=== PATIENT | female | born 1985 | race Caucasian/White ===

== ENCOUNTER → 2019-03-27 12:39 | Outpatient (CLI) | payer OTHER, SELFPAY ==
--- NOTE | 2019-03-27 | DI.MG.S_ITS ---
BILATERAL DIGITAL DIAGNOSTIC MAMMOGRAM 3D/2D: 03/27/2019 CLINICAL: Baseline exam. Left breast lump. No prior exams were available for comparison. The tissue of both breasts is predominantly fatty. No significant masses, calcifications, or other findings are seen in either breast. Specifically, no finding to correspond to the patient's palpable abnormality. IMPRESSION: INCOMPLETE: NEEDS ADDITIONAL IMAGING EVALUATION There is no abnormality seen in the left breast to correspond with the palpable abnormality at 1 o'clock, however, ultrasound is recommended. This was performed immediately following this exam. This exam was interpreted at Station ID: [id number]. NOTE: For mammograms, a report in lay terms will be sent to the patient. Approximately 15% of breast malignancies will not be visualized mammographically. In the management of a palpable breast mass, a negative mammogram must not discourage biopsy of a clinically suspicious lesion. Electronically Signed By: Rozina tinoco/:03/27/2019 13:46:10 ACR BI-RADS Category 0: Incomplete [id number]
--- NOTE | 2019-03-27 | DI.US.S_ITS ---
LIMITED ULTRASOUND OF LEFT BREAST: 03/27/2019 CLINICAL: Palpable left breast lump by physician. Comparison is made to exam dated: 03/27/2019 [facility]. Color flow and real-time ultrasound of the left breast were performed. Son scale images of the real-time examination were reviewed. No significant abnormalities were seen sonographically in the left breast. Specifically, no finding to correspond to the patient's palpable abnormality. Incidental note made of benign appearing lymph node at the 1:30 position corresponding to an intramammary lymph node also seen on mammogram. This does not correlate to palpable abnormality site. IMPRESSION: NEGATIVE There is no sonographic evidence of malignancy. There is no abnormality seen in the left breast to correspond with the palpable abnormality at 1 o'clock. Beginning annual screening mammogram at age 40 is recommended. Findings and recommendations were conveyed to the patient at time of exam. This exam was interpreted at Station ID: [id number]. Electronically Signed By: Rozina tinoco/:03/27/2019 14:07:35 letter sent: Normal Exam Ultrasound BI-RADS: 1 Negative
== END ==
PROVIDERS: PCP Nurse Practitioner Acute Care; Visit Provider Nurse Practitioner Acute Care
DX: R92.8 Other abnormal and inconclusive findings on diagnostic imaging of breast (principal); N63.21 Unspecified lump in the left breast, upper outer quadrant
CPT/HCPCS: 76642; 77066; G0279

== ENCOUNTER → 2021-09-15 15:18 | Outpatient (CLI) | payer OTHER, SELFPAY ==
[2021-09-15 16:13] LABS: Add Manual Diff / Slide Review NO; Basophils Absolute Auto 100 /uL (0-100); Basophils Percent Auto 0.5 % (0-2); Eosinophils Absolute Auto 0 /uL (0-450); Eosinophils Percent Auto 0.3 % (2-4); Hematocrit 33.9 % (36-46); Hemoglobin 11.5 g/dL (12.0-16.0); Lymphocytes Absolute Auto 2300 /uL (1100-4500); Lymphocytes Percent Auto 23.5 % (25-40); Mean Corpuscular HGB Conc 33.9 % (30-36); Mean Corpuscular Hemoglobin 24.3 PG (26-34); Mean Corpuscular Volume 71.5 fL (80-100); Monocytes Absolute Auto 700 /uL (0-900); Monocytes Percent Auto 6.7 % (3-14); Neutrophils Absolute Auto 6700 /uL (1500-7000); Platelet Count 247 X10^3/uL (150-400); Red Blood Cell Count 4.74 X10^6/uL (4.0-5.2); Red Cell Distribution Width 15.8 % (11.6-14.8); White Blood Cell Count 9.7 X10^3/uL (4.5-11.0)
[2021-09-15 20:25] LABS: Hemoglobin A1C% w Est Avg Glu 5.3 % (4.0-6.0)
[2021-09-16 07:42] LABS: RPR Screen Non Reactive (Non Reactive); Varicella IgG Antibody 921 index (Immune >165)
[2021-09-16 16:14] LABS: Hepatitis B Surface Antigen NEGATIVE s/c (NEGATIVE); Rubella Antibody IgG 15.6 IU/mL (>15)
[2021-09-16 16:30] LABS: HIV 1 & 2 Ab/Ag 4th Gen Combo NEGATIVE (NEGATIVE); Hep C Virus Ab w/Reflex Quant NEGATIVE s/c (NEGATIVE)
== END ==
PROVIDERS: PCP Nurse Practitioner Acute Care; Referring Provider Obstetrics & Gynecology; Visit Provider Obstetrics & Gynecology
DX: Z34.01 Encounter for supervision of normal first pregnancy, first trimester (principal); R73.03 Prediabetes; Z3A.11 11 weeks gestation of pregnancy
CPT/HCPCS: 36415; 80055; 83036; 86787; 86803; 86850; 86900; 86901; 87389

== ENCOUNTER → 2021-10-19 15:41 | Outpatient (CLI) | payer OTHER, SELFPAY ==
[2021-10-19 19:18] LABS: Bilirubin Urine UA NEGATIVE (NEGATIVE); Color Urine UA YELLOW; Glucose Urine UA TRACE g/dL (Negative); Ketones Urine UA TRACE (NEGATIVE); Leukocyte Esterase Urine UA NEGATIVE (NEGATIVE); Nitrite Urine UA NEGATIVE (Negative); Occult Blood Urine UA NEGATIVE (Negative); Protein Urine UA TRACE (Negative); Specific Gravity Urine UA 1.025 (1.000-1.035); Urobilinogen Urine UA 0.2 E.U./dL (0.2)
[2021-10-19 19:21] LABS: Appearance Urine UA CLOUDY
== END ==
PROVIDERS: PCP Nurse Practitioner Acute Care; Visit Provider Obstetrics & Gynecology
DX: Z34.01 Encounter for supervision of normal first pregnancy, first trimester (principal)
CPT/HCPCS: 81003; 87086

== ENCOUNTER → 2021-10-19 16:04 | Outpatient (CLI) | payer OTHER, SELFPAY ==
[2021-10-21 22:24] LABS: AFP Value 29.1 ng/mL (.); Gest Age on Col Date 16.7 weeks (.); Insulin Dep Diabetes No (.); OSBR Risk 1IN 10000 (.); Results Report (.); Test Results *Screen Negative* (.)
== END ==
PROVIDERS: PCP Nurse Practitioner Acute Care; Referring Provider Obstetrics & Gynecology; Visit Provider Obstetrics & Gynecology
DX: Z34.02 Encounter for supervision of normal first pregnancy, second trimester (principal); Z3A.16 16 weeks gestation of pregnancy
CPT/HCPCS: 36415; 81003; 82105; 87086

== ENCOUNTER → 2021-11-17 14:45 | Outpatient (CLI) | payer OTHER, SELFPAY ==
--- NOTE | 2021-11-17 14:47 | DI.US.S_ITS ---
PROCEDURE: US OB >= 14 WEEKS FETUS INDICATIONS: 20 Week Anatomy Scan OUTSIDE/PRIOR DATING DATA: Last menstrual period (LMP): Not available. LMP-based estimated date of delivery (PIETRO): Not available. First dating scan (date and location): 11/17/2021 at . Estimated date of delivery (PIETRO) from first dating scan: 03/31/2022. TECHNIQUE: Real-time scanning was performed of the fetus, with image documentation and biometric measurements. Endovaginal scanning: Not performed COMPARISON: None. FINDINGS: General: A single living intrauterine gestation is present. Presentation: Variable. Placenta: Placental position is anterior right , without previa. Amniotic fluid index: 13.7 cm, normal range is 5-24 cm. Single deepest vertical pocket is 5.7 cm. heart rate: 143 beats per minute. Maternal cervical canal: 3.6 cm long. Normal lower limit is 2.5 cm. biometrics: Biparietal diameter: 20 weeks 3 days Head circumference: 21 weeks 0 day Abdominal circumference: 20 weeks 3 days Femur length: 21 weeks 4 days Clinically estimated gestational age: Not available. Composite gestational age from present scan: 20 weeks 6 days Estimated weight and percentile: 389 g; percentile not provided. Anatomic survey: Neuro: Ventricles are non-dilated at less than 10 mm. Cisterna magna is normal at 3-11 mm. Cerebellum is normal in size and morphology. Nuchal skin fold: Normal at less than 6 mm between 14-21 weeks gestational age. Face: Nose and lips, facial profile are normal. Spine: No evidence for spina bifida. Heart: 4-chambered heart is present, with normal ventricular outflow tracts. Diaphragm: Diaphragm is intact. Stomach: Left-sided stomach is present. Kidneys: No hydronephrosis. Normal is less than 5 mm in 2nd trimester, less than 7 mm in 3rd trimester. Cord: 3-vessel cord has orthotopic insertion. Bladder: Normal in size. Extremities: All 4 extremities identified. IMPRESSION: 1. A single living intrauterine gestation with an estimated gestational age of 20 weeks 6 days corresponding to ultrasound PIETRO 03/31/2022. 2. Normal anatomic survey. We strive to produce accurate, complete, and clear reports of imaging services. To assist us in improving patient care, this report was composed using standard report templates and voice recognition software. Therefore, it may contain abnormal punctuation, insertions and/or omissions. Occasional wrong-word or sound-alike substitutions may occur. Though we review the report and make efforts to correct it, we do recommend that the report be read carefully in proper context to recognize any text inaccuracies. Dictated by: Marnie Hernandez M.D. on 11/17/2021 at 17:39 Approved by: Marnie Hernandez M.D. on 11/17/2021 at 17:42
== END ==
PROVIDERS: PCP Nurse Practitioner Acute Care; Referring Provider Obstetrics & Gynecology; Visit Provider Obstetrics & Gynecology
DX: Z34.02 Encounter for supervision of normal first pregnancy, second trimester (principal); Z3A.20 20 weeks gestation of pregnancy
CPT/HCPCS: 76811

== ENCOUNTER → 2021-11-22 10:31 | Outpatient (CLI) | payer OTHER, SELFPAY ==
[2021-11-22 14:27] LABS: Urine N gonorrhoeae NOT DETECTED
[2021-11-22 14:29] LABS: Urine Chlamydia NOT DETECTED
== END ==
PROVIDERS: PCP Nurse Practitioner Acute Care; Visit Provider Obstetrics & Gynecology
DX: Z34.82 Encounter for supervision of other normal pregnancy, second trimester (principal); Z3A.21 21 weeks gestation of pregnancy
CPT/HCPCS: 87491; 87591

== ENCOUNTER → 2021-12-23 13:22 | Outpatient (CLI) | payer OTHER, SELFPAY ==
[2021-12-23 15:03] LABS: Hematocrit 33.3 % (36-46); Hemoglobin 11.3 g/dL (12.0-16.0)
[2021-12-23 15:42] LABS: GTT (PREG) 1 Hour PP 50gm Dose 122 mg/dL (76-139)
== END ==
PROVIDERS: PCP Nurse Practitioner Acute Care; Referring Provider Obstetrics & Gynecology; Visit Provider Obstetrics & Gynecology
DX: Z34.02 Encounter for supervision of normal first pregnancy, second trimester (principal)
CPT/HCPCS: 36415; 82950; 85014; 85018

== ENCOUNTER → 2022-02-24 10:06 | Outpatient (CLI) | payer OTHER, SELFPAY ==
[2022-02-25 17:11] LABS: Candida species Negative (Negative); Gardnerella vaginalis Negative (Negative); Trichomoas vaginalis Negative (Negative)
== END ==
PROVIDERS: PCP Nurse Practitioner Acute Care; Visit Provider Obstetrics & Gynecology
DX: N89.8 Other specified noninflammatory disorders of vagina (principal); Z91.89 Other specified personal risk factors, not elsewhere classified
CPT/HCPCS: 87077; 87086; 87147; 87186; 87480; 87510; 87660

== ENCOUNTER → 2022-03-03 15:16 | Outpatient (CLI) | payer OTHER, SELFPAY ==
[2022-03-05 13:25] LABS: Strep Grp B PCR NEG for Grp B Strep
== END ==
PROVIDERS: PCP Nurse Practitioner Acute Care; Visit Provider Physician Assistant Medical
DX: Z34.03 Encounter for supervision of normal first pregnancy, third trimester (principal); Z3A.36 36 weeks gestation of pregnancy
CPT/HCPCS: 87653

== ENCOUNTER → 2022-03-04 14:38 | Outpatient (CLI) | payer OTHER, SELFPAY ==
--- NOTE | 2022-03-04 14:39 | DI.US.S_ITS ---
PROCEDURE: US OB LIMITED INDICATIONS: growth OUTSIDE/PRIOR DATING DATA: First dating scan (date and location): 11/17/2021. Estimated date of delivery (PIETRO) from first dating scan: 04/20/2022. Working PIETRO is 03/31/2022 TECHNIQUE: Real-time scanning was performed of the fetus, with image documentation and biometric measurements. COMPARISON: [facility], , OB >= 14 WEEKS FETUS, 11/17/2021, 15:10. FINDINGS: General: A single living intrauterine gestation is present. Presentation: Vertex. Placenta: Placental position is anterior , without previa. Amniotic fluid index: 13.6 cm, normal range is 5-24 cm. Single deepest vertical pocket is 5.6 cm. heart rate: 153 beats per minute. Maternal cervical canal: Not well seen. biometrics: Biparietal diameter: 36 weeks 6 days Head circumference: 38 weeks 6 days Abdominal circumference: 34 weeks 5 days Femur length: 36 weeks 1 day Clinically estimated gestational age: 36 weeks 1 day Composite gestational age from present scan: 36 weeks 5 days Estimated weight and percentile: 2754 g; 40th percentile Other: Not applicable. IMPRESSION: 1. Single living IUP redemonstrated and interval growth is normal with estimated weight 40th percentile. We strive to produce accurate, complete, and clear reports of imaging services. To assist us in improving patient care, this report was composed using standard report templates and voice recognition software. Therefore, it may contain abnormal punctuation, insertions and/or omissions. Occasional wrong-word or sound-alike substitutions may occur. Though we review the report and make efforts to correct it, we do recommend that the report be read carefully in proper context to recognize any text inaccuracies. Dictated by: Drew BARAHONA Interpreted: Robert Collins MD on 03/04/2022 at 15:33 Transcribed by: LYUDMILA on 03/04/2022 at 15:35 Approved by: Robert Collins M.D. on 03/04/2022 at 17:54
== END ==
PROVIDERS: PCP Nurse Practitioner Acute Care; Referring Provider Obstetrics & Gynecology; Visit Provider Obstetrics & Gynecology
DX: Z34.03 Encounter for supervision of normal first pregnancy, third trimester (principal); Z3A.36 36 weeks gestation of pregnancy
CPT/HCPCS: 76815

== ENCOUNTER 2022-03-31 14:54 | Outpatient (CLI) | payer OTHER, SELFPAY | END 2022-03-31 16:24 | disposition home or self-care (01) | LOC: LABOR 15:55 → OB 04-08 17:07 | PROVIDERS: PCP Nurse Practitioner Acute Care; Referring Provider Obstetrics & Gynecology; Visit Provider Obstetrics & Gynecology | DX: O48.0 Post-term pregnancy (principal); Z3A.40 40 weeks gestation of pregnancy | CPT/HCPCS: 59025; G0378; G0379 ==

== ENCOUNTER → 2022-04-04 14:52 | Outpatient (CLI) | payer OTHER, SELFPAY ==
--- NOTE | 2022-04-04 14:52 | DI.US.S_ITS ---
PROCEDURE: US OB LIMITED INDICATIONS: SURJIT Post dates TECHNIQUE: Real-time scanning was performed of the fetus, with image documentation. Endovaginal scanning: Not performed COMPARISON: [facility], OB LIMITED, 03/04/2022, 14:57. FINDINGS: A single living intrauterine gestation is present. Presentation: Vertex Placenta: Placental position is anterior . Amniotic fluid index: 14.2 cm, normal range is 5-24 cm. Single deepest vertical pocket is 5 point cm. heart rate: 131 beats per minute. Maternal cervical canal not visualized. Clinically estimated gestational age: 40 weeks 4 days Estimated gestational age from initial scan: 03/31/2022. IMPRESSION: Single living intrauterine gestation. SURJIT of 14.2 cm Dictated by: Aba Regalado M.D. on 04/04/2022 at 15:34 Approved by: Aba Regalado M.D. on 04/04/2022 at 15:36
== END ==
PROVIDERS: PCP Nurse Practitioner Acute Care; Referring Provider Obstetrics & Gynecology; Visit Provider Obstetrics & Gynecology
DX: O48.0 Post-term pregnancy (principal); Z3A.40 40 weeks gestation of pregnancy
CPT/HCPCS: 76815

== ENCOUNTER 2022-04-04 15:38 | Outpatient (CLI) | payer OTHER, SELFPAY ==
--- NOTE | 2022-04-04 20:34 | PM.OBTRLD ---
Visit Information Visit Information Date of evaluation: 04/04/22 Primary OB Provider: Sienna Lobo On-call OB Provider: Caitlin Ching Comments/Additional reasons for admission: Pt is a 36yo at 40w4d here for post-dates NST. Pt is feeling her baby move regularly. No LOF, vaginal bleeding, contractions. [facility] Medical History (Updated 04/04/22 @ 20:40 by Caitlin Ching MD) ADHD Anxiety Asthma Chicken pox Chronic back pain Chronic tonsillitis Depression Headache History of recurrent ear infection Iron deficiency anemia Irregular menstrual cycle PTSD (post-traumatic stress disorder) Shoulder pain Sleep apnea TMJ (temporomandibular joint disorder) Vitamin D deficiency Surgical History (Updated 09/07/21 @ 13:23 by Sheila Frazier RN) History of colposcopy History of third molar tooth extraction Family History (Updated 10/18/21 @ 20:39 by Deja Howard) Grandmother Diabetes mellitus Congestive heart failure History of heart disease Hyperlipidemia Hypertension Grandfather Colon cancer Melanoma Grandfather Dementia Family/Other Breast cancer Family/Other Breast cancer BRCA gene mutation positive Family/Other BRCA gene mutation positive Grandmother Bone cancer Grandmother Alzheimer disease Hypertension Mental health problem Mother Mental health problem Brother Mental health problem Social History marital status: unmarried,living together number of children: 0 household members: significant other and other lives independently: Yes housing: other pets and animals: Yes (1 cat, s/o managing litter box) education level: college occupational status: employed current occupational exposures/hazards: No special gio needs: No travel history: over 6 months ago seatbelt use: always water heater temp set < 120 deg: No (will check and change) working smoke detector in home: Yes fire extinguisher in home: Yes carbon monox detector in home: Yes firearms in home: Yes firearms unloaded and locked: No do you feel safe at home: Yes Smoking Status: Former smoker second hand exposure: No alcohol intake: former substance use type: marijuana during the past year weight has: remained stable well-balanced diet: about half the time daily servings fruits/ve-1 caffeine: Yes (Aware of 200mg limit) Type(s) of exercise: none Evaluation Evaluation Baseline heart rate: 125 Variability: Moderate (11-25) monitor accelerations: Present Monitor Decelerations: Absent Category of Tracing: Reactive Diagnosis, Plan/Disposition Final Diagnosis (1) Post-dates : Status: Acute Plan/Disposition Plan: at 40w4d here for post-dates NST, which is reactive. SURJIT 14.2. Reassuring findings. Pt to be contacted by primary OB's office regarding IOL date. Stable for d/c home. OB Disposition: home
== END 2022-04-04 16:19 | disposition home or self-care (01) ==
LOC: OB 04-08 17:04
PROVIDERS: PCP Nurse Practitioner Acute Care; Referring Provider Family Medicine; Visit Provider Family Medicine
DX: O48.0 Post-term pregnancy (principal); Z3A.40 40 weeks gestation of pregnancy
CPT/HCPCS: 59025; 76815; G0378; G0379

== ENCOUNTER → 2022-04-07 10:30 | Outpatient (CLI) | payer OTHER, SELFPAY ==
--- NOTE | 2022-04-07 10:32 | DI.US.S_ITS ---
PROCEDURE: US OB BIOPHYSICAL PROFILE INDICATIONS: BPP AND SURJIT OUTSIDE/PRIOR DATING DATA: Last menstrual period (LMP): Not available. LMP-based estimated date of delivery (PIETRO): Not available. First dating scan (date and location): 11/17/2021. Estimated date of delivery (PIETRO) from first dating scan: 03/31/2022. TECHNIQUE: Real-time scanning was performed of the fetus, with image documentation and biometric measurements. Biophysical profile was also obtained. COMPARISON: [facility], OB LIMITED, 03/04/2022, 14:57. [facility] OB >= 14 WEEKS FETUS, 03/31/2022, 14:40. [facility] OB LIMITED, 04/04/2022, 15:05. FINDINGS: General: A single living intrauterine gestation is present. Presentation: Vertex. Placenta: Placental position is anterior , without previa. Amniotic fluid index: 18.1 cm, normal range is 5-24 cm. Single deepest vertical pocket is 5.3 cm. heart rate: 115 beats per minute. Maternal cervical canal: Not visualized Biophysical profile: Tone: 2 points. Movement: 2 points. Respiration: 2 points. Largest pocket of fluid: 2 points. IMPRESSION: 1. A single living intrauterine gestation redemonstrated. 2. Normal biophysical profile. We strive to produce accurate, complete, and clear reports of imaging services. To assist us in improving patient care, this report was composed using standard report templates and voice recognition software. Therefore, it may contain abnormal punctuation, insertions and/or omissions. Occasional wrong-word or sound-alike substitutions may occur. Though we review the report and make efforts to correct it, we do recommend that the report be read carefully in proper context to recognize any text inaccuracies. Dictated by: Marnie Hernandez M.D. on 04/07/2022 at 11:45 Approved by: Marnie Hernandez M.D. on 04/07/2022 at 11:50
== END ==
PROVIDERS: PCP Nurse Practitioner Acute Care; Referring Provider Obstetrics & Gynecology; Visit Provider Obstetrics & Gynecology
DX: O48.0 Post-term pregnancy (principal)
CPT/HCPCS: 76819

== ENCOUNTER 2022-04-07 11:06 | Outpatient (CLI) | payer OTHER, SELFPAY ==
--- NOTE | 2022-04-07 14:05 | P.TNLD_ITS ---
Visit Information Visit Information Date of evaluation: 04/07/22 Primary OB Provider: Sienna Lobo On-call OB Provider: Raquel Avila Reason for Evaluation: Yes non-stress test non-stress test reason: other (Post- dates) Vital Signs Vital Signs: Temperature 36.2? blood pressure 119/72 heart rate 89 PFSH Medical History ADHD Anxiety Asthma Chicken pox Chronic back pain Chronic tonsillitis Depression Headache History of recurrent ear infection Iron deficiency anemia Irregular menstrual cycle PTSD (post-traumatic stress disorder) Shoulder pain Sleep apnea TMJ (temporomandibular joint disorder) Vitamin D deficiency Surgical History History of colposcopy History of third molar tooth extraction Family History Grandmother Diabetes mellitus Congestive heart failure History of heart disease Hyperlipidemia Hypertension Grandfather Colon cancer Melanoma Grandfather Dementia Family/Other Breast cancer Family/Other Breast cancer BRCA gene mutation positive Family/Other BRCA gene mutation positive Grandmother Bone cancer Grandmother Alzheimer disease Hypertension Mental health problem Mother Mental health problem Brother Mental health problem Social History marital status: unmarried,living together number of children: 0 household members: significant other and other lives independently: Yes housing: other pets and animals: Yes (1 cat, s/o managing litter box) education level: college occupational status: employed current occupational exposures/hazards: No special gio needs: No travel history: over 6 months ago seatbelt use: always water heater temp set < 120 deg: No (will check and change) working smoke detector in home: Yes fire extinguisher in home: Yes carbon monox detector in home: Yes firearms in home: Yes firearms unloaded and locked: No do you feel safe at home: Yes Smoking Status: Former smoker second hand exposure: No alcohol intake: former substance use type: marijuana during the past year weight has: remained stable well-balanced diet: about half the time daily servings fruits/ve-1 caffeine: Yes (Aware of 200mg limit) Type(s) of exercise: none Evaluation Evaluation Baseline heart rate: 140 Variability: Moderate (11-25) monitor accelerations: Present Monitor Decelerations: Absent Category of Tracing: Reactive Diagnosis, Plan/Disposition Final Diagnosis (1) 41 weeks gestation of : Status: Acute Plan/Disposition Plan: 36-year-old at 41 weeks gestation here for postdates testing. NST reactive and BPP 10/04. She is scheduled for induction of labor on 04/11/22 and is aware of reasons to return to her center before then. OB Disposition: home
--- NOTE | 2022-04-10 22:51 | PM.CALLCOV.1 ---
Call Coverage Note Note Date of Patient Contact: 04/09/22 Time of Patient Contact: 11:00 Narrative of Care Provided: Nan has no concerns specific to her at this time. Recommend another covid test Monday night, prior to IOL 04/11/12. Recommend ways to improve nasal congestion during . Consider covid test on admission. Nasal Congestion Nan is a 36 year old at 41+ weeks. She called reporting nasal congestion and wonders if this will impact her induction on Monday. Took a covid test, which was negative 04/09/22. Wondering if she can still have family with her during labor. Current symptoms: Reports nasal congestion; Denies epistaxis, nasal discharge, post nasal drip, change in smell or other Associated symptoms: Denies headache(s), facial pain or other
== END 2022-04-07 12:18 | disposition home or self-care (01) ==
LOC: LABOR 11:08 → OB 04-08 17:04
PROVIDERS: PCP Nurse Practitioner Acute Care; Referring Provider Obstetrics & Gynecology; Visit Provider Obstetrics & Gynecology
DX: O48.0 Post-term pregnancy (principal); Z3A.41 41 weeks gestation of pregnancy
CPT/HCPCS: 59025; 76819; G0378; G0379

== ENCOUNTER 2022-04-11 07:16 | Inpatient (IN) | payer OTHER, SELFPAY ==
--- NOTE | 2022-04-11 08:30 | PM.OBHP.1 ---
OB HPI Date/Time Date of admission: 04/11/22 Date Patient Seen: 04/11/22 Time Patient Seen: 08:50 History of Present Condition Chief complaint: INDUCTION : 1 Para: 0 Estimated Date of Delivery: 03/31/22 Estimated Gestational Age (weeks): 41+4 Narrative: Nan Dumont is a 36 year old primigravida admitted now for cervical ripening and induction at 41+ 4 weeks gestational age. course is largely been uneventful with solid dating and appropriate milestones. GBS is negative. Indications Indication for induction OB: post dates History of Present care: good care Dating criteria: LMP confirmed by 1st trimester US Ultrasounds: normal 1st trimester US and normal mid trimester US Obstetrical complications: none Medical complications: none Preadmission Labs Blood type: A (+) positive -: Antibody screen: negative, GBS status: negative, HBsAG: negative, HIV: negative and RPR/VDLR: negative -: Chlamydia screen: not detected and Gonorrhea screen: not detected -: Rubella: immune and Varicella: immune HCT: 33.3 HCAB: negative PAP: Normal Quad screen: Normal Cell-free DNA: Low risk, female 1 hr GTT: 96 Prior (ies) History: G1 Evaluation Evaluation Baseline heart rate: 135 Variability: Moderate (11-25) monitor accelerations: Present Monitor Decelerations: Absent Category of Tracing: Reactive Dilation (cm): 0 Effacement (%): 50 Dilation: Closed Effacement: 40-50% station: -3 Position of cervix: posterior Consistency: medium Leonard score: 2 PFSH Medical History ADHD Anxiety Asthma Chicken pox Chronic back pain Chronic tonsillitis Depression Headache History of recurrent ear infection Iron deficiency anemia Irregular menstrual cycle PTSD (post-traumatic stress disorder) Shoulder pain Sleep apnea TMJ (temporomandibular joint disorder) Vitamin D deficiency Surgical History History of colposcopy History of third molar tooth extraction Family History Grandmother Diabetes mellitus Congestive heart failure History of heart disease Hyperlipidemia Hypertension Grandfather Colon cancer Melanoma Grandfather Dementia Family/Other Breast cancer Family/Other Breast cancer BRCA gene mutation positive Family/Other BRCA gene mutation positive Grandmother Bone cancer Grandmother Alzheimer disease Hypertension Mental health problem Mother Mental health problem Brother Mental health problem Social History marital status: unmarried,living together number of children: 0 household members: significant other and other lives independently: Yes housing: other pets and animals: Yes (1 cat, s/o managing litter box) education level: college occupational status: employed current occupational exposures/hazards: No special gio needs: No travel history: over 6 months ago seatbelt use: always water heater temp set < 120 deg: No (will check and change) working smoke detector in home: Yes fire extinguisher in home: Yes carbon monox detector in home: Yes firearms in home: Yes firearms unloaded and locked: No do you feel safe at home: Yes Smoking Status: Former smoker second hand exposure: No alcohol intake: former substance use type: marijuana during the past year weight has: remained stable well-balanced diet: about half the time daily servings fruits/ve-1 caffeine: Yes (Aware of 200mg limit) Type(s) of exercise: none Meds Home Medications and Allergies Home Medications Medication Instructions Recorded Confirmed Type docusate sodium 100 mg capsule 100 mg PO DAILY 01/06/22 03/31/22 History (Colace) ferrous sulfate 142 mg (45 mg 142 mg PO DAILY 01/06/22 03/31/22 History iron) tablet,extended release (Slow Fe) prenat.vits,zara,cwl-hpvr-vtmyk 1 tab PO DAILY 01/06/22 03/31/22 History nitrofurantoin 100 mg PO BID #10 caps 03/03/22 03/31/22 Rx monohydrate/macrocrystals 100 mg capsule (Macrobid) Allergies Allergy/AdvReac Type Severity Reaction Status Date / Time No Known Allergies Allergy Verified 03/31/22 14:05 OB Exam Vital signs Blood Pressure: 131/89 Pulse Rate: 96 Temperature: 97.0 F HENMT Head: normal to inspection, normocephalic and atraumatic Eyes General: appearance normal, both eyes and all related structures Resp Effort & Inspection: normal respiratory effort and able to speak in complete sentences Auscultation: clear to auscultation bilaterally Cardio Rate: regular rate Rhythm: regular rhythm Heart Sounds: S1 normal, S2 normal and no murmurs Extremities Lower extremity: Yes normal to inspection and edema (Trace, bilateral) GI Inspection: normal to inspection Palpation: Yes soft and Yes no hepatosplenomegaly Uterus Location (Fundal Height): 39 Presentation: vertex Estimated Weight (lbs): 8 Assessment and Plan Assessment and Plan Assessment and Plan narrative: ASSESSMENT 1. Intrauterine , 41+4 weeks EGA 2. Post-dates 3. GBS negative status PLAN 1. Admit 2. See Dr. Lobo's admission orders
[2022-04-11 08:31] LABS: COVID-19 CEPHEID 4-PLEX PCR Negative (Negative); Influenza A - CEPHEID Flu A NEGATIVE (NEGATIVE); Influenza B - CEPHEID Flu B NEGATIVE (NEGATIVE); Respiratory Syncytial Virus Negative (Negative)
[2022-04-11 08:40] LABS: Add Manual Diff / Slide Review NO; Basophils Absolute Auto 0 /uL (0-100); Basophils Percent Auto 0.5 % (0-2); Eosinophils Absolute Auto 0 /uL (0-450); Eosinophils Percent Auto 0.4 % (2-4); Hematocrit 35.1 % (36-46); Hemoglobin 11.7 g/dL (12.0-16.0); Lymphocytes Absolute Auto 1700 /uL (1100-4500); Lymphocytes Percent Auto 22.3 % (25-40); Mean Corpuscular HGB Conc 33.3 % (30-36); Mean Corpuscular Hemoglobin 26.2 PG (26-34); Mean Corpuscular Volume 78.7 fL (80-100); Monocytes Absolute Auto 800 /uL (0-900); Monocytes Percent Auto 9.7 % (3-14); Neutrophils Absolute Auto 5200 /uL (1500-7000); Neutrophils Percent Auto 67.1 % (50-75); Platelet Count 195 X10^3/uL (150-400); Red Blood Cell Count 4.46 X10^6/uL (4.0-5.2); Red Cell Distribution Width 17.1 % (11.6-14.8); White Blood Cell Count 7.8 X10^3/uL (4.5-11.0)
[2022-04-11] MEDS: DINOPROSTONE VAG (CERVIDIL) 10 MG VAG (09:00)
[2022-04-11 09:06] VITALS: BP 131/89; PULSE 96; TEMP 36.1
[2022-04-11] MEDS: BISACODYL 10 MG SUPP PR (19:37)
--- NOTE | 2022-04-11 21:05 | PM.OBPNLAB ---
Date/Time Date Patient Seen: 04/11/22 Time Patient Seen: 21:06 Pain Control Pain control: tolerating well Pelvic Exam Dilation (cm): 0 Effacement (%): 85 station: -3 Amniotic membrane status: Intact Contractions Contractions on admission: none Monitor mode: External Contraction intensity: Mild Status status: Category l Heart Rate Baseline: 135 Monitor Accelerations: Present Monitor Decelerations: Absent Monitor Variability: Moderate Assessment and Plan Assessment: other (Continued cervical ripening) Comments: Cytotec oral overnight Ambien as needed
[2022-04-11] MEDS: ZOLPIDEM 5 MG TABLET PO (21:27)
[2022-04-11] MEDS: miSOPROStoL 100 MCG TABLET 50 MCG PO (21:27)
[2022-04-11] MEDS: polyethylene glycoL 3350 17 GM POWD.PACK PO (21:44)
[2022-04-12] MEDS: miSOPROStoL 100 MCG TABLET 50 MCG PO ×2 (01:30→05:31)
[2022-04-12] MEDS: CEFAZOLIN 2 GM/100 ML PREMIX 100 ML IV (16:30)
--- NOTE | 2022-04-12 16:53 | SUR.OPER ---
Supine on Padded OR bed, head on pillow, safety belt at thigh, arms secured on padded arm boards at <90 degrees abduction. Bump under right buttock. Legs uncrossed with pillow under knees, gel pad to heels, tape over blanket to lower legs.
--- NOTE | 2022-04-12 17:20 | SUR.OPER ---
Pre procedure heart rate was 135. Baby girl born at 1658. Placenta delivered at 1659. Placenta and cord blood sent with L&D RN.
[2022-04-12 17:42] VITALS: BP 117/62; PULSE 86; RESP 18; TEMP 36.6; O2SAT 100
--- NOTE | 2022-04-12 17:43 | PM.OBPNLAB ---
Date/Time Date Patient Seen: 04/12/22 Time Patient Seen: 13:15 Pain Control Pain control: tolerating well Pelvic Exam Effacement (%): 85 station: -3 Amniotic membrane status: Intact Contractions Contractions on admission: none Monitor mode: External Contraction frequency (min): 8 Contraction intensity: Mild Status status: Category ll Heart Rate Baseline: 140 Monitor Accelerations: Present Monitor Decelerations: Late (intermittent) Monitor Variability: Moderate (intermittent minimal) Assessment and Plan Assessment: induction ongoing Plan: Comments: Discussed with patient and her that there is no descend of the head over 2 days. Intermittent late decelerations and intermittent minimal variability Suspect meconium-stained amniotic fluid Plan: A decision was made to proceed with a primary low-transverse section The risks, benefits, and alternatives to the procedure were explained to the patient. The risks including bleeding, infection, injury to the bowel, bladder, or ureters. She understands these risks and agrees to proceed. A full par Q was held and consent form was signed.
--- NOTE | 2022-04-12 17:43 | PM.PREOP ---
Pre-operative Note COVID-19 Criteria for continued procedure: Non-surgical alternatives not available or appropriate per current SOC Interval Note History & Physical reviewed/Exam performed by Physician: Yes Changes to H&P: No H&P completed within 30 days and has changed as indicated here:: 04/11/22
--- NOTE | 2022-04-12 17:43 | PM.OBCS.1 ---
Operative Date/Time/Diagnoses Date of procedure: 04/12/22 Time of procedure: 17:44 Pre-op diagnosis: 41-,4/7 weeks gestation Failed induction of labor No descent of the head with induction Intermittent late decels and minimal BTBV Suspect meconium-stained amniotic fluid Post-op diagnosis: same Procedure & Clinicians Procedure: Primary low-transverse section Same procedure as scheduled: Yes Indications: No descent of the head over 2 days of induction Suspect meconium-stained amniotic fluid Surgeon: Sienna Solis Yes if Unassisted: Yes Anesthesia Type: Spinal (With Duramorph) Operative Notes Findings: Live female infant in the [place] presentation Tight triple nuchal cord Moderate meconium-stained amniotic fluid Normal uterus, tubes, and ovaries Closure Type: primary Specimen(s): cord blood, cord pH and placenta Intraoperative meds administered: Duramorph, Ketorolac and Pitocin Applied: Catheter (To continuous drainage) Estimated Blood Loss (mL): 350 Blood products transfused: none Procedure in detail: The patient was taken to the operating room where she was placed in the seated position. Spinal anesthesia was administered. She was then placed in the dorsal supine position with a leftward tilt. She was prepped and draped in the usual sterile fashion. A timeout was performed. After spinal analgesia was found to be adequate, a Pfannenstiel skin incision was made 2 fingerbreadths above the pubic symphysis and carried through to the underlying layer fascia. The fascia was nicked in the midline, and the incision extended bilaterally with the [place] scissors. The superior aspect of the fascial incision was grasped with a [place] clamps, elevated, and the underlying rectus muscles dissected off sharply and bluntly. Attention was then turned to the inferior aspect of this incision which in a similar fashion was grasped with a [place] clamps, elevated, and the underlying rectus muscles dissected off sharply and bluntly. The rectus muscles were in the midline. The peritoneum was identified, grasped between 2 hemostats, and entered sharply with the Metzenbaum scissors. This incision was extended superiorly and inferiorly with good visualization of the bladder. The bladder blade was inserted. The vesicouterine peritoneum was identified, grasped with the pickup, and entered sharply with the Metzenbaum scissors. This incision was extended bilaterally, and the bladder flap was created digitally. The bladder blade was reinserted. The lower uterine segment was incised in a transverse fashion with the scalpel. Upon entering the amniotic sac there was a moderate amount of moderate meconium-stained amniotic fluid. The 's head was delivered without difficulty. The nose and mouth were suctioned with bulb suction. The remainder of the body delivered without difficulty. The cord was double clamped and cut. Cord bloods were obtained. A piece of cord for cord pH was obtained. The infant was handed off to waiting RN and RT. Pitocin was given in the IV fluids. The placenta was delivered manually. The uterus was cleared of all clots and debris. The uterine incision was repaired with #1 chromic in a running interlocking fashion, and a second layer the same suture was used for an imbricating layer. Hemostasis was achieved. The tubes and ovaries were examined and were found to be normal. The gutters were cleared of all clots and debris. The bladder flap was reapproximated using 2-0 Vicryl in a running fashion. The parietal peritoneum was closed using 2-0 Vicryl in a running fashion. The fascia was reapproximated using 0 Vicryl in a running fashion. The subcutaneous layer was copiously irrigated with warm normal saline. 5 simple interrupted sutures of 3-0 Vicryl were placed to reapproximate the subcutaneous layer. The skin was closed with 4-0 Monocryl in a subcuticular fashion. Steri-Strips were placed. An Aquacel dressing was placed. The uterus was expressed of a small amount of old blood. Sponge, lap, and instrument counts were correct x-2. The patient tolerated the procedure well, and was taken to PACU in stable condition. Complications: none Baby 1: Infant Gender: Female Presentation: vertex Position: Right Occiput Anterior Placental Delivery Description: Expressed Cord Vessel Description: 3 Vessels, Nuchal Cord (x3), Tight and Clamped/Cut score (1 min): 8 score (5 min): 9 weight: 8 lb 1.2 oz Post-operative Condition: stable Disposition: PACU Aftercare: routine postop
[2022-04-12 17:46] VITALS: BP 115/68; PULSE 80; RESP 22; O2SAT 100
[2022-04-12 17:50] VITALS: BP 123/68; PULSE 76; RESP 20; O2SAT 100
--- NOTE | 2022-04-12 17:57 | SUR.PHASEI ---
Mom and baby to [facility] with all belongings, L&D RN. comfortable.
[2022-04-12] MEDS: OXYCODONE IR 5 MG TABLET PO ×2 (19:28→20:54)
[2022-04-12] MEDS: ACETAMINOPHEN 325 MG TABLET 650 MG PO (19:29)
[2022-04-12] MEDS: MORPHINE 2 MG/ML INJ IV (22:24)
[2022-04-12 22:39] LABS: Hematocrit 32.3 % (36-46); Hemoglobin 10.9 g/dL (12.0-16.0)
[2022-04-12] MEDS: KETOROLAC 30 MG/ML VIAL IV (23:21)
[2022-04-13] MEDS: OXYCODONE IR 10 MG TABLET PO ×4 (01:48→20:52)
[2022-04-13] MEDS: ACETAMINOPHEN 325 MG TABLET 650 MG PO ×4 (01:49→20:53)
[2022-04-13] MEDS: KETOROLAC 30 MG/ML VIAL IV ×2 (05:36→11:35)
[2022-04-13 06:01] LABS: Hematocrit 31.8 % (36-46); Hemoglobin 10.5 g/dL (12.0-16.0)
[2022-04-13] MEDS: DOCUSATE 100 MG CAPSULE PO (09:28)
[2022-04-13] MEDS: PRENATAL VIT,CALC/IRON/FOLIC 1 TABLET 1 TAB PO (09:29)
[2022-04-13] MEDS: MAGNESIUM HYDROXIDE 30 ML UDC PO (15:15)
[2022-04-13] MEDS: IBUPROFEN 600 MG TABLET PO ×2 (17:43→23:56)
--- NOTE | 2022-04-13 18:58 | PM.OBPN.1 ---
Subjective - OB Subjective Patient comments: incisional pain and tolerating diet baby status: doing well and nursing well [place] feeding status: exclusively breast feeding Date Patient Seen: 04/13/22 Time Patient Seen: 19:02 Interval history: Doyle catheter removed this morning. Patient has been able to void without the catheter. She has not had a bowel movement but is passing flatus. is going okay. Pain is better controlled. Exam Vital Signs (past 8 hours): Oxygen Delivery Method Room Air Narrative Exam Narrative: Generally: Patient is sitting up in bed, no acute distress Lungs: Clear to auscultation bilaterally Cardiovascular: Regular rate and rhythm Fundus: Firm at U -1 Incision: Clean dry and intact with Aquacel dressing Extremities: Trace edema, negative Homans Objective Labs 04/13/22 05:29 Labs: Laboratory Results - last 24 hr 04/12/22 04/13/22 22:28 05:29 Hgb 10.9 L 10.5 L Hct 32.3 L 31.8 L Assessment & Plan Plan day: 1 plan OB: routine postop care Comments: Possible discharge tomorrow Time Spent With Patient Time: Total time spent is greater than 50% in coordination of care (as documented) at patient's floor/unit and/or counseling patient: Time with patient: 15-24 minutes
[2022-04-14] MEDS: ACETAMINOPHEN 325 MG TABLET 650 MG PO ×2 (03:06→09:07)
[2022-04-14] MEDS: OXYCODONE IR 10 MG TABLET PO (03:06)
[2022-04-14] MEDS: IBUPROFEN 600 MG TABLET PO (06:06)
[2022-04-14] MEDS: OXYCODONE IR 5 MG TABLET PO ×2 (09:08→14:20)
[2022-04-14] MEDS: DOCUSATE 100 MG CAPSULE PO (09:08)
[2022-04-14] MEDS: PRENATAL VIT,CALC/IRON/FOLIC 1 TABLET 1 TAB PO (09:08)
--- NOTE | 2022-04-24 14:38 | PM.OBDS.1 ---
Discharge Providers Provider Date of admission: 04/11/22 07:16 Discharge Date: 04/14/22 Primary care physician: KUMAR uTcker Consults: 04/11/22 07:26 Consult to Anesthesiology Urgent Comment: osmel Consulting Provider: Sienna Lobo Reason for consultation: Epidural 04/12/22 17:51 Consult to Preschool Director Routine Comment: Discharge provider: Sienna Lobo MD Summary Hospital Course Date Patient Seen: 04/14/22 Time Patient Seen: 13:30 Diagnoses: 41-4/7 weeks gestation Cervical ripening Nonreassuring heart rate tracing, remote from delivery Meconium-stained amniotic fluid Primary section Hospital Course: Patient is a 36-year-old 1 para 1 who presented on April 11, 2022 at 41-,4/7 weeks gestation for cervical ripening. She received Cervidil. That evening there was no cervical change. She received misoprostol overnight. In the early afternoon of April 12, 2022 she still had no cervical change and was having intermittent minimal [id number] variability and late decelerations. A decision was made to proceed to primary low-transverse section. She underwent this procedure without complication. Her postoperative course was unremarkable and she was discharged home on postop day #2. She was tolerating a diet. Her pain was well controlled. was going well. She was voiding without the catheter. Her bleeding was tapering. She was ambulating without assistance. Peripartum Data Delivery Method: Section Procedures: Cervidil cervical ripening Misoprostol cervical ripening Primary low-transverse section Spinal anesthesia with Duramorph complications: none [place] 1: Gender: Female Disposition of : home Status at Discharge Cognitive/behavioral status at discharge: oriented Functional status at discharge: independent ambulation Overall status at discharge: patient is progressing back to baseline Time Spent with Patient Time attestation: Total time spent providing and/or coordinating discharge services: Time spent: Less than 30 minutes Objective Labs 04/13/22 05:29 Exam Vital Signs (past 8 hours): Oxygen Delivery Method Room Air Narrative Exam Narrative: Generally: Patient is sitting up in bed, nursing , no acute distress Lungs: Clear to auscultation bilaterally Cardiovascular: Regular rate and rhythm Fundus: Firm at U -1 Incision: Clean dry and intact with Aquacel dressing Extremities: 1+ edema, negative Homans Discharge Plan Discharge Plan Patient Disposition: Home Provider Discharge Comment: Call with fever, chills, redness or drainage around the incision, or bleeding vaginally more than a pad in an hour Ibuprofen 600 mg every 6 hours as needed for cramping Tylenol 650 mg every 6 hours as needed for pain Discharge orders & Medications Prescriptions: New oxycodone 5 mg tablet 5 mg PO Q4H PRN (Reason: pain) Qty: 30 0RF Continued prenat.vits,zara,qdr-volu-vasuz Tablet 1 tab PO DAILY docusate sodium [Colace] 100 mg capsule 100 mg PO DAILY Discontinued nitrofurantoin monohyd/m-cryst [Macrobid] 100 mg capsule 100 mg PO BID Qty: 10 0RF Rx Instructions: must administer with a meal/food Slow Fe 142 mg (45 mg iron) tablet extended release 142 mg PO DAILY No Action sertraline 50 mg tablet 50 mg PO DAILY Qty: 30 3RF Follow up/Referrals: Sienna Lobo MD [Physician] - (Incision check: Apr 20 @ 3:30pm appt w/ Dr. Long on May 25 @ 2:00pm w/ a 1:45pm check in appt: @ 9am) Diet/Activity/Treatments Diet: Regular Activity: No heavy lifting, nothing more than a gal of milk for the first 2 weeks Nothing in the vagina for 6 weeks Skin/Wound/Dressing Care Report to your healthcare provider any signs of infection, such as:: chills, fever, increased pain, unusual drainage and unusual redness Dressing: Do not remove Visit Report/Discharge Packet Instructions: DI for , DI for Depression, DI for Prescription Opioid Use Stand Alone Forms: Discharge: Care, Patient Portal/API, Stroke Signs & Symptoms Discharge Data Primary Care Provider: Yuliana Mars
== END 2022-04-14 15:40 | disposition home or self-care (01) | DRG 788 ==
PROVIDERS: Admitting Provider Obstetrics & Gynecology; PCP Nurse Practitioner Acute Care; Referring Provider Obstetrics & Gynecology; Visit Provider Obstetrics & Gynecology
PROC: 10D00Z1 Extraction of Products of Conception, Low, Open Approach (ICD-10-PCS; CPT 59514; principal; 2022-04-12 16:15)
DX: O48.0 Post-term pregnancy (principal); O76 Abnormality in fetal heart rate and rhythm complicating labor and delivery; O64.8XX0 Obstructed labor due to other malposition and malpresentation, not applicable or unspecified; Z37.0 Single live birth; Z20.822 Contact with and (suspected) exposure to COVID-19
CPT/HCPCS: 0241U; 36415; 59050; 59200; 59510; 59514; 85014; 85018; 85025; 86850; 86900; 86901; G0379; J0690; J1885; J2270; J2274; J3010

== ENCOUNTER → 2023-08-11 15:55 | Outpatient (CLI) | payer OTHER, SELFPAY ==
[2023-08-11 17:46] LABS: Natera Collection Specimen Collected
[2023-08-11 18:03] LABS: Add Manual Diff / Slide Review NO; Basophils Absolute Auto 0 /uL (0-100); Basophils Percent Auto 0.4 % (0-2); Eosinophils Absolute Auto 0 /uL (0-450); Eosinophils Percent Auto 0.3 % (2-4); Hematocrit 30.6 % (36-46); Hemoglobin 10.2 g/dL (12.0-16.0); Lymphocytes Absolute Auto 2200 /uL (1100-4500); Lymphocytes Percent Auto 24.6 % (25-40); Mean Corpuscular HGB Conc 33.2 % (30-36); Mean Corpuscular Volume 66.1 fL (80-100); Monocytes Absolute Auto 600 /uL (0-900); Neutrophils Absolute Auto 6200 /uL (1500-7000); Neutrophils Percent Auto 67.7 % (50-75); Platelet Count 257 X10^3/uL (150-400); Red Blood Cell Count 4.63 X10^6/uL (4.0-5.2); Red Cell Distribution Width 17.7 % (11.6-14.8); White Blood Cell Count 9.1 X10^3/uL (4.5-11.0)
[2023-08-11 19:19] LABS: Microcytosis 2+
[2023-08-11 19:58] LABS: Hemoglobin A1C% w Est Avg Glu 5.4 % (4.0-6.0)
[2023-08-11 20:45] LABS: Urine N gonorrhoeae NOT DETECTED
[2023-08-11 20:47] LABS: Urine Chlamydia NOT DETECTED
[2023-08-12 06:17] LABS: RPR Screen Non Reactive (Non Reactive)
[2023-08-12 08:18] LABS: Varicella IgG Antibody 1917 index (Immune >165)
[2023-08-14 17:36] LABS: Hepatitis B Surface Antigen NEGATIVE s/c (NEGATIVE); Rubella Antibody IgG 22.2 IU/mL (>15)
[2023-08-14 17:48] LABS: HIV 1 & 2 Ab/Ag 4th Gen Combo NEGATIVE (NEGATIVE); Hep C Virus Ab w/Reflex Quant NEGATIVE s/c (NEGATIVE)
== END ==
PROVIDERS: PCP Nurse Practitioner Acute Care; Referring Provider Student in an Organized Health Care Education/Training Program; Visit Provider Student in an Organized Health Care Education/Training Program
DX: O09.521 Supervision of elderly multigravida, first trimester (principal); E66.9 Obesity, unspecified; Z3A.12 12 weeks gestation of pregnancy
CPT/HCPCS: 80055; 83036; 86787; 86803; 86850; 86900; 86901; 87389; 87491; 87591

== ENCOUNTER → 2023-09-08 14:21 | Outpatient (CLI) | payer OTHER, SELFPAY ==
[2023-09-08 16:24] LABS: Ferritin 6 ng/mL (6-137)
== END ==
PROVIDERS: PCP Nurse Practitioner Acute Care; Referring Provider Student in an Organized Health Care Education/Training Program; Visit Provider Student in an Organized Health Care Education/Training Program
DX: O99.019 Anemia complicating pregnancy, unspecified trimester (principal)
CPT/HCPCS: 36415; 82105; 82728; 83021; 87086

== ENCOUNTER → 2023-10-05 14:25 | Outpatient (CLI) | payer OTHER, SELFPAY ==
--- NOTE | 2023-10-05 14:25 | DI.US.S_ITS ---
PROCEDURE: US OB >= 14 WEEKS FETUS INDICATIONS: 20 week anatomy OUTSIDE/PRIOR DATING DATA: Last menstrual period (LMP): 05/07/2023. LMP-based estimated date of delivery (PIETRO): 02/21/2024. First dating scan (date and location): 08/11/2023. TECHNIQUE: Real-time scanning was performed of the fetus, with image documentation and biometric measurements. Endovaginal scanning: Not performed COMPARISON: [facility], OB >= 14 WEEKS FETUS, 03/31/2022, 14:40. [facility], OB <= 14 WEEKS FETUS, 08/11/2023, 15:35. FINDINGS: General: A single living intrauterine gestation is present. Presentation: Variable. Placenta: Placental position is anterior , without previa. Amniotic fluid index: 12.6 cm, normal range is 5-24 cm. Single deepest vertical pocket is 4.4 cm. heart rate: 153 beats per minute. Maternal cervical canal: 3.5 cm long. Normal lower limit is 2.5 cm. biometrics: Biparietal diameter: 5.1 centimeters, 21 weeks 3 days Head circumference: 19.3 centimeters, 21 weeks 4 days Abdominal circumference: 16.9 centimeters, 21 weeks 6 days Femur length: 3.8 centimeters, 22 weeks 0 days Clinically estimated gestational age: 21 weeks 4 days Composite gestational age from present scan: 21 weeks 5 days Estimated weight and percentile: 460 grams, 62 percent Anatomic survey: Neuro: Ventricles are non-dilated at less than 10 mm. Cisterna magna is normal at 3-11 mm. Cerebellum is normal in size and morphology. Nuchal skin fold: Normal at less than 6 mm between 14-21 weeks gestational age. Face: Nose and lips, facial profile are normal. Spine: No evidence for spina bifida. Heart: 4-chambered heart is present, with normal ventricular outflow tracts. Diaphragm: Diaphragm is intact. Stomach: Left-sided stomach is present. Kidneys: No hydronephrosis. Normal is less than 5 mm in 2nd trimester, less than 7 mm in 3rd trimester. Cord: 3-vessel cord has orthotopic insertion. Bladder: Normal in size. Extremities: All 4 extremities identified. IMPRESSION: 1. Single live intrauterine consistent with 21 weeks and 5 days. 2. Normal anatomic survey. We strive to produce accurate, complete, and clear reports of imaging services. To assist us in improving patient care, this report was composed using standard report templates and voice recognition software. Therefore, it may contain abnormal punctuation, insertions and/or omissions. Occasional wrong-word or sound-alike substitutions may occur. Though we review the report and make efforts to correct it, we do recommend that the report be read carefully in proper context to recognize any text inaccuracies. Dictated by: Joey Patel M.D. on 10/05/2023 at 18:37 Approved by: Joey Patel M.D. on 10/05/2023 at 18:40
== END ==
PROVIDERS: PCP Nurse Practitioner Acute Care; Referring Provider Student in an Organized Health Care Education/Training Program; Visit Provider Student in an Organized Health Care Education/Training Program
DX: Z34.82 Encounter for supervision of other normal pregnancy, second trimester (principal); Z3A.21 21 weeks gestation of pregnancy
CPT/HCPCS: 76811

== ENCOUNTER → 2023-12-01 08:55 | Outpatient (CLI) | payer OTHER, SELFPAY ==
[2023-12-01 10:55] LABS: Hematocrit 32.1 % (36-46); Hemoglobin 10.5 g/dL (12.0-16.0)
[2023-12-01 11:15] LABS: GTT (PREG) 1 Hour PP 50gm Dose 117 mg/dL (76-139)
== END ==
PROVIDERS: PCP Nurse Practitioner Acute Care; Referring Provider Student in an Organized Health Care Education/Training Program; Visit Provider Student in an Organized Health Care Education/Training Program
DX: O99.019 Anemia complicating pregnancy, unspecified trimester (principal); Z13.1 Encounter for screening for diabetes mellitus
CPT/HCPCS: 36415; 82950; 85014; 85018

== ENCOUNTER → 2023-12-27 07:38 | Outpatient (CLI) | payer OTHER, SELFPAY ==
--- NOTE | 2023-12-27 07:39 | DI.US.S_ITS ---
PROCEDURE: US OB FOLLOW UP INDICATIONS: follow-up growth OUTSIDE/PRIOR DATING DATA: Last menstrual period (LMP): 05/07/2023. LMP-based estimated date of delivery (PIETRO): 02/21/2024. Working PIETRO First dating scan (date and location): 08/11/2023. Estimated date of delivery (PIETRO) from first dating scan: 02/20/2024 TECHNIQUE: Real-time scanning was performed of the fetus, with image documentation and biometric measurements. COMPARISON: [facility], OB >= 14 WEEKS FETUS, 10/05/2023, 14:39. FINDINGS: General: A single living intrauterine gestation is present. Presentation: Vertex. Placenta: Placental position is fundal , without previa. Amniotic fluid index: 14.7 cm, normal range is 5-24 cm. Single deepest vertical pocket is 5 cm. heart rate: 149 beats per minute. Maternal cervical canal: 4.3 cm long. Normal lower limit is 2.5 cm. biometrics: Biparietal diameter: 8.7 cm, 34 weeks and 6 days Head circumference: 32 cm, 36 weeks Abdominal circumference: 29.7 cm, 33 weeks and 5 days Femur length: 6.7 cm, 34 weeks and 5 days Clinically estimated gestational age: 32 weeks Composite gestational age from present scan: 34 weeks and 6 days Estimated weight and percentile: 2398 g, 96 percentile Other: Not applicable. IMPRESSION: Interval growth is greater than expected with EFW now at the 96 percentile. SURJIT within normal limits. Living intrauterine gestation in vertex presentation. Dictated by: Jb Sewell M.D. on 12/27/2023 at 13:49 Approved by: Jb Sewell M.D. on 12/27/2023 at 13:51
== END ==
PROVIDERS: PCP Nurse Practitioner Acute Care; Referring Provider Student in an Organized Health Care Education/Training Program; Visit Provider Student in an Organized Health Care Education/Training Program
DX: O99.213 Obesity complicating pregnancy, third trimester (principal); Z3A.34 34 weeks gestation of pregnancy
CPT/HCPCS: 76816

== ENCOUNTER 2024-01-12 11:01 | Outpatient (CLI) | payer OTHER, SELFPAY ==
--- NOTE | 2024-01-12 11:38 | PM.OBTRLD ---
Visit Information Visit Information Date of evaluation: 01/12/24 Primary OB Provider: Ena Marino Reason for Evaluation: Yes non-stress test Vital Signs Vital Signs: reviewed in OBIX, within normal parameters [facility] [place] Medical History (Updated 09/08/23 @ 14:25 by Ena Marino DO) Deficient knowledge of Pain of breast during Headache Asthma Atypical squamous cell changes of undetermined significance (ASCUS) on cervical cytology with positive high risk human papilloma virus (HPV) (01/03/17) PTSD (post-traumatic stress disorder) Anxiety ADHD Shoulder pain Chronic back pain Chicken pox History of recurrent ear infection Irregular menstrual cycle Chronic tonsillitis Vitamin D deficiency Iron deficiency anemia Sleep apnea Depression TMJ (temporomandibular joint disorder) Surgical History History of colposcopy History of third molar tooth extraction Family History (Updated 08/10/23 @ 11:50 by Sheila Frazier RN) Grandmother Diabetes mellitus Congestive heart failure History of heart disease Hyperlipidemia Hypertension Grandfather Colon cancer Melanoma Grandfather Dementia Depression Family/Other Breast cancer Dementia Family/Other Breast cancer BRCA gene mutation positive Family/Other BRCA gene mutation positive Grandmother Bone cancer Grandmother Alzheimer disease Hypertension Mental health problem Mother Depression Anxiety Brother Depression Social History marital status: unmarried,living together number of children: 0 household members: significant other, family (mother and her S/O) and children lives independently: Yes caregiver/support person: Yes housing: house pets and animals: Yes (dog and 2 cats; s/o managing litter boxes) education level: college (bachelor's degree) occupational status: unemployed and disabled current occupational exposures/hazards: No special gio needs: No travel history: over 6 months ago seatbelt use: always water heater temp set < 120 deg: Yes working smoke detector in home: Yes fire extinguisher in home: Yes carbon monox detector in home: Yes firearms in home: Yes firearms unloaded and locked: No do you feel safe at home: Yes Smoking Status: Never smoker second hand exposure: No alcohol intake: former (rarely when not ) substance use type: marijuana (not while /) during the past year weight has: other (daughter 16 mo old, currently 10lb over pre-) well-balanced diet: rarely or never daily servings fruits/ve-1 caffeine: Yes (single AM cup coffee) Type(s) of exercise: none Evaluation Evaluation Baseline heart rate: 140 Variability: Moderate (11-25) monitor accelerations: Present Monitor Decelerations: Absent Contraction Frequency (minutes): 0 Category of Tracing: Reactive Diagnosis, Plan/Disposition Final Diagnosis (1) Obesity affecting , antepartum: Status: Acute Plan/Disposition Plan: Follow-up in clinic as scheduled OB Disposition: home
== END 2024-01-12 11:40 | disposition home or self-care (01) ==
LOC: LABOR 11:29 → OB 01-15 06:12
PROVIDERS: PCP Nurse Practitioner Acute Care; Referring Provider Student in an Organized Health Care Education/Training Program; Visit Provider Student in an Organized Health Care Education/Training Program
DX: O99.213 Obesity complicating pregnancy, third trimester (principal); Z3A.34 34 weeks gestation of pregnancy
CPT/HCPCS: 59025; G0378; G0379

== ENCOUNTER 2024-01-19 11:23 | Outpatient (CLI) | payer OTHER, SELFPAY | END 2024-01-19 12:14 | disposition home or self-care (01) | LOC: OB 01-22 11:46 | PROVIDERS: PCP Nurse Practitioner Acute Care; Referring Provider Student in an Organized Health Care Education/Training Program; Visit Provider Student in an Organized Health Care Education/Training Program | DX: O09.523 Supervision of elderly multigravida, third trimester (principal); Z3A.35 35 weeks gestation of pregnancy | CPT/HCPCS: 59025; G0378; G0379 ==

== ENCOUNTER → 2024-01-26 11:11 | Observation (INO) | payer OTHER, SELFPAY | END | disposition home or self-care (01) | PROVIDERS: Admitting Provider Obstetrics & Gynecology; PCP Nurse Practitioner Acute Care; Referring Provider Obstetrics & Gynecology; Visit Provider Obstetrics & Gynecology | DX: O09.523 Supervision of elderly multigravida, third trimester (principal); Z3A.36 36 weeks gestation of pregnancy | CPT/HCPCS: G0379 ==

== ENCOUNTER 2024-01-27 10:55 | Observation (INO) | payer OTHER, SELFPAY | END 2024-01-27 11:33 | disposition home or self-care (01) | LOC: LABOR 10:56 | PROVIDERS: Admitting Provider Obstetrics & Gynecology; PCP Nurse Practitioner Acute Care; Referring Provider Obstetrics & Gynecology; Visit Provider Obstetrics & Gynecology | DX: O09.523 Supervision of elderly multigravida, third trimester (principal); Z3A.36 36 weeks gestation of pregnancy | CPT/HCPCS: 59025; G0378; G0379 ==

== ENCOUNTER → 2024-01-29 13:55 | Outpatient (CLI) | payer OTHER, SELFPAY ==
[2024-01-30 12:37] LABS: Strep Grp B PCR POS for Grp B Strep
== END ==
PROVIDERS: PCP Nurse Practitioner Acute Care; Visit Provider Student in an Organized Health Care Education/Training Program
DX: Z36.85 Encounter for antenatal screening for Streptococcus B (principal)
CPT/HCPCS: 87653

== ENCOUNTER 2024-01-29 13:57 | Outpatient (CLI) | payer OTHER, SELFPAY ==
[2024-01-29 14:23] LABS: Add Manual Diff / Slide Review NO; Basophils Absolute Auto 0 /uL (0-100); Basophils Percent Auto 0.5 % (0-2); Eosinophils Absolute Auto 0 /uL (0-450); Eosinophils Percent Auto 0.1 % (2-4); Hematocrit 34.1 % (36-46); Hemoglobin 11.1 g/dL (12.0-16.0); Lymphocytes Absolute Auto 1500 /uL (1100-4500); Lymphocytes Percent Auto 17.6 % (25-40); Mean Corpuscular HGB Conc 32.6 % (30-36); Mean Corpuscular Hemoglobin 25.3 PG (26-34); Mean Corpuscular Volume 77.6 fL (80-100); Monocytes Absolute Auto 600 /uL (0-900); Monocytes Percent Auto 6.9 % (3-14); Neutrophils Absolute Auto 6600 /uL (1500-7000); Neutrophils Percent Auto 74.9 % (50-75); Platelet Count 191 X10^3/uL (150-400); Red Cell Distribution Width 17.1 % (11.6-14.8); White Blood Cell Count 8.8 X10^3/uL (4.5-11.0)
== END 2024-01-29 15:25 | disposition home or self-care (01) ==
LOC: OB 01-31 12:49
PROVIDERS: PCP Nurse Practitioner Acute Care; Referring Provider Student in an Organized Health Care Education/Training Program; Visit Provider Student in an Organized Health Care Education/Training Program
DX: O09.523 Supervision of elderly multigravida, third trimester (principal); Z3A.36 36 weeks gestation of pregnancy; Z36.85 Encounter for antenatal screening for Streptococcus B
CPT/HCPCS: 36415; 59025; 85025; 87653; G0378; G0379

== ENCOUNTER 2024-02-09 11:56 | Outpatient (CLI) | payer OTHER, SELFPAY | END 2024-02-09 12:35 | disposition home or self-care (01) | LOC: OB 02-12 06:28 | PROVIDERS: PCP Nurse Practitioner Acute Care; Referring Provider Student in an Organized Health Care Education/Training Program; Visit Provider Student in an Organized Health Care Education/Training Program | DX: O09.523 Supervision of elderly multigravida, third trimester (principal); Z3A.38 38 weeks gestation of pregnancy | CPT/HCPCS: 59025; G0378; G0379 ==

== ENCOUNTER 2024-02-16 05:50 | Inpatient (IN) | payer OTHER, SELFPAY ==
[2024-02-16 06:57] LABS: Add Manual Diff / Slide Review NO; Basophils Absolute Auto 0 /uL (0-100); Basophils Percent Auto 0.5 % (0-2); Eosinophils Absolute Auto 0 /uL (0-450); Eosinophils Percent Auto 0.2 % (2-4); Hematocrit 34.6 % (36-46); Hemoglobin 11.3 g/dL (12.0-16.0); Lymphocytes Absolute Auto 1600 /uL (1100-4500); Lymphocytes Percent Auto 22.4 % (25-40); Mean Corpuscular HGB Conc 32.5 % (30-36); Mean Corpuscular Hemoglobin 25.7 PG (26-34); Monocytes Absolute Auto 600 /uL (0-900); Monocytes Percent Auto 8.3 % (3-14); Neutrophils Absolute Auto 4900 /uL (1500-7000); Neutrophils Percent Auto 68.6 % (50-75); Platelet Count 196 X10^3/uL (150-400); Red Blood Cell Count 4.38 X10^6/uL (4.0-5.2); Red Cell Distribution Width 17.2 % (11.6-14.8); White Blood Cell Count 7.2 X10^3/uL (4.5-11.0)
[2024-02-16] MEDS: CITRIC ACID/SODIUM CITRATE 15 ML SOLUTION 30 ML PO (07:26)
--- NOTE | 2024-02-16 07:46 | P.HPOB_ITS ---
OB HPI Date/Time Date of admission: 02/16/24 Date Patient Seen: 02/16/24 Time Patient Seen: 07:46 History of Present Condition Chief complaint: Section : 2 Para: 1 Estimated Date of Delivery: 02/21/24 Estimated Gestational Age (weeks): 39+0 Narrative: Nan Dumont is a 38 year old female Indications Operative indications ( section): previous uterine surgery History of Present care: good care Dating criteria: LMP confirmed by 1st trimester US Ultrasounds: normal mid trimester US Narrative: Ultrasound Ultrasound Details:: Dating US 08/11/23: smith IUP with CRL 5.8cm (12+2); +FCA 160bpm; normal appearing uterus, bilateral ovaries, and cervix Anatomy US 10/05/23: normal anatomy, anterior placenta, EFW 62%ile Expected Delivery Route/Plan Planned repeat C/S Specific Issues/Plans [x ] cfDNA- low risk XY; [x ] CF/SMA- neg; [x ] MSAFP- neg GBS positive Anemia--> baseline anemia 10.2/30.6, placed on oral iron supplements at 16wks (started taking at 18wks); [ x] hgb electrophoresis- nml, ferritin- low; 28wk repeat 10.5/32.1; [ x] repeat H/H 36wks 11.1/34.1 Hx of prior (failed IOL at 41+5wks)--> counseled re: TOLAC vs RLTCS, pt desires RLTCS; scheduled on 02/16/24 Obesity (pre-preg BMI 43)--> [?x ] ASA (AMA & obesity); [?x ] Hgb A1C with NOB labs- 5.4; [ x] growth sono 28-32wks- EFW 96%ile;? [? x] weekly NST > 34weeks AMA Hx of depression/anxiety and PPD, on sertraline 100mg daily S/O [place] Assigned to [facility] Preadmission Labs Blood type: A (+) positive -: Antibody screen: negative, Cystic fibrosis screen: unknown, GBS status: positive, HBsAG: negative, HIV: negative, HSV 1: unknown, HSV 2: unknown and RPR/VDLR: negative -: Chlamydia screen: not detected and Gonorrhea screen: not detected -: Rubella: immune and Varicella: immune HCT: 34.6 HCAB: negative PAP: Normal 1 hr GTT: 117 Evaluation Evaluation Baseline heart rate: 140 Variability: Moderate (11-25) monitor accelerations: Present Monitor Decelerations: Absent Category of Tracing: Reactive [facility] Medical History (Updated 02/09/24 @ 12:12 by Ena Marino DO) Deficient knowledge of Pain of breast during Headache Asthma Atypical squamous cell changes of undetermined significance (ASCUS) on cervical cytology with positive high risk human papilloma virus (HPV) (01/03/17) PTSD (post-traumatic stress disorder) Anxiety ADHD Shoulder pain Chronic back pain Chicken pox History of recurrent ear infection Irregular menstrual cycle Chronic tonsillitis Vitamin D deficiency Iron deficiency anemia Sleep apnea Depression TMJ (temporomandibular joint disorder) Surgical History History of colposcopy History of third molar tooth extraction Family History (Updated 08/10/23 @ 11:50 by Sheila Frazier RN) Grandmother Diabetes mellitus Congestive heart failure History of heart disease Hyperlipidemia Hypertension Grandfather Colon cancer Melanoma Grandfather Dementia Depression Family/Other Breast cancer Dementia Family/Other Breast cancer BRCA gene mutation positive Family/Other BRCA gene mutation positive Grandmother Bone cancer Grandmother Alzheimer disease Hypertension Mental health problem Mother Depression Anxiety Brother Depression Social History marital status: unmarried,living together number of children: 0 household members: significant other, family (mother and her S/O) and children lives independently: Yes caregiver/support person: Yes housing: house pets and animals: Yes (dog and 2 cats; s/o managing litter boxes) education level: college (bachelor's degree) occupational status: unemployed and disabled current occupational exposures/hazards: No special gio needs: No travel history: over 6 months ago seatbelt use: always water heater temp set < 120 deg: Yes working smoke detector in home: Yes fire extinguisher in home: Yes carbon monox detector in home: Yes firearms in home: Yes firearms unloaded and locked: No do you feel safe at home: Yes Smoking Status: Never smoker second hand exposure: No alcohol intake: former (rarely when not ) substance use type: marijuana (not while /) during the past year weight has: other (daughter 16 mo old, currently 10lb over pre-) well-balanced diet: rarely or never daily servings fruits/ve-1 caffeine: Yes (single AM cup coffee) Type(s) of exercise: none Meds Home Medications and Allergies Home Medications Medication Instructions Recorded Confirmed Type prenat.vits,zara,jil-kbrw-zldjh 1 tab PO DAILY 01/06/22 02/09/24 History sertraline 100 mg tablet 100 mg PO DAILY 08/10/23 02/09/24 History aspirin 81 mg tablet,delayed 81 mg PO DAILY 09/08/23 02/09/24 History release (Adult Aspirin Regimen) miscellaneous medical supply #1 ea 12/29/23 02/09/24 Rx RSVPreF3 antigen-AS01E 0.5 ml IM ONCE #1 ea 01/29/24 02/09/24 Rx adjuvant(PF) 120 mcg/0.5 mL IM suspension, kit Allergies Allergy/AdvReac Type Severity Reaction Status Date / Time No Known Allergies Allergy Verified 02/09/24 11:41 Review of Systems Review of Systems ROS: Yes All systems reviewed with the patient and are negative except as otherwise documented OB Exam HENMT Head: normal to inspection Resp Effort & Inspection: normal respiratory effort and able to speak in complete sentences Cardio Rate: regular rate Rhythm: regular rhythm Extremities Lower extremity: Yes normal to inspection GI Other: gravid, nontender, nondistended Objective Labs 02/16/24 06:35 Labs: Laboratory Results - last 24 hr 02/16/24 06:35 WBC 7.2 RBC 4.38 Hgb 11.3 L Hct 34.6 L MCV 79.0 L MCH 25.7 L MCHC 32.5 RDW 17.2 H Plt Count 196 Neut % (Auto) 68.6 Lymph % (Auto) 22.4 L [place] % (Auto) 8.3 Eos % (Auto) 0.2 L Baso % (Auto) 0.5 Neut # (Auto) 4900 Lymph # (Auto) 1600 [place] # (Auto) 600 Eos # (Auto) 0 Baso # (Auto) 0 Blood Type A Positive Antibody Screen Negative Assessment and Plan Assessment and Plan Assessment and Plan narrative: 38yo at 39+0wks admitted for repeat . -CBC, T&S on admission -NST on admission -neuraxial anesthesia -GBS pos, will get 3g Ancef for surgical prophylaxis -PPH risk medium given repeat and obesity -VTE risk low, SCDs with surgery -will move to OR for delivery once all teams ready counseling: It was explained to the patient that a section is a surgery to deliver the baby through an incision in the abdominal wall and uterus.? All procedures can be associated with risk and unforeseen complications, which can be immediate or delayed.? Risks and complications of section include, but are not limited to:? infection of the uterus, pelvic organs, or skin; inadvertent injury to internal organs such as the bowel, bladder, or possibly even the baby; blood loss, transfusion, and/or life-threatening hemorrhage requiring hysterectomy; blood clots in the legs, pelvic organs, or lungs; adverse reaction to medications or anesthesia during surgery; development of placenta accreta spectrum in a subsequent ; and increased risk of section in a subsequent . Time-Based Coding :: [TOTAL MINUTES] spent with patient and on the chart (including review of chart, obtaining history, exam, reviewing outside data, placing orders, documenting exam and treatment plan, and counseling patient) on [DATE].
[2024-02-16] MEDS: CEFAZOLIN VIAL 3 GM in SODIUM CHLORIDE 0.9% 100 ML IV (08:04)
[2024-02-16] MEDS: LACTATED RINGERS 1,000 ML 999 ML IV (08:40)
[2024-02-16 09:26] VITALS: BP 104/66; PULSE 59; RESP 19; TEMP 36.5; O2SAT 100
--- NOTE | 2024-02-16 09:26 | P.OP_ITS ---
Operative Date/Time/Diagnoses Date of procedure: 02/16/24 Time of procedure: 08:00 Pre-op diagnosis: 1. [place] intrauterine gestation at 39+0 weeks 2. History of prior 3. Anemia of 4. Advanced maternal age 5. Obesity in Post-op diagnosis: same Procedure & Clinicians Procedure: Repeat low transverse section Same procedure as scheduled: Yes Indications: 38yo at 39+0wks admitted for scheduled repeat . Surgeon: Ena Marino Retail Sales Vitamin Consultant: Checo Major Reason for Retail Sales Vitamin Consultant: Retail Sales Vitamin Consultant was necessary for timely, efficient, and safe completion of the procedure. Anesthesia Type: Spinal Operative Notes Findings: Normal-appearing uterus and bilateral fallopian tubes and ovaries. Clear fluid noted with AROM. Delivery productive of a viable male in cephalic presentation with APGARs 7/8 and weighing 3893g. Closure Type: primary Specimen(s): cord blood Intraoperative meds administered: Duramorph and Ketorolac Applied: Catheter Estimated Blood Loss (mL): 800 Blood products transfused: none Procedure in detail: The risks, benefits, indications and alternatives of the procedure were reviewed with the patient and informed consent was obtained. The patient was taken to the operating room where spinal anesthesia was obtained without difficulty and was found to be adequate. Sequential compression devices were placed bilaterally for VTE prophylaxis. She was then prepped and draped in the normal, sterile fashion in the dorsal supine position with a leftward tilt. She received 3g Ancef for surgical prophylaxis. A Pfannenstiel skin incision was then made with the scalpel and carried through to the underlying layer of fascia. The fascia was incised in the midline and the incision extended laterally with the West scissors. The inferior aspect of the fascial incision was grasped with Jess clamps, elevated, and the underlying rectus muscles were dissected off sharply. Attention was then turned to the superior aspect of the incision, which, in a similar fashion, was grasped, tented up with Jess clamps and the rectus muscles were dissected off sharply. The rectus muscles were then at the midline. The peritoneum was identified, and entered sharply. The peritoneal incision was then extended horizontally, superiorly and inferiorly, with good visualization of the bladder. The bladder blade was then inserted. The vesicouterine peritoneum was then identified, grasped with pick-ups, and entered sharply with Metzenbaum scissors. This incision was then extended laterally and the bladder flap was created digitally. The lower uterine segment was incised in a transverse fashion with the scalpel. The uterine incision was then extended manually in a cephalad/caudad direction. The amniotic sac was artificially ruptured, productive of clear fluid. The bladder blade was then removed. The infant?s head was elevated to the hysterotomy, however with fundal pressure was unable to be delivered. The TenderTouch vacuum was then applied and activated, and with traction on the vacuum, the 's head delivered atraumatically through the hysterotomy. The vacuum was immediately released, a nuchal cord x1 was reduced, and the infant's body was then easily delivered. The infant immediately cried with good tone, thus?the cord was doubly clamped and cut after a 60sec delay, with the handed off to the waiting pediatrics team. The placenta was then removed spontaneously with gentle traction on the umbilical cord. The uterus was then left in-situ and cleared of all clots and debris. The uterine incision was repaired with 0-vicryl in a running, locked fashion. A figure of eight suture of 0-monocryl was placed at the center of the hysterotomy with excellent hemostasis achieved. The paracolic gutters were cleared of all clot and debris. The fascia was then reapproximated with 0-vicryl in a running fashion. The subcutaneous layer was closed with 3-0 vicryl in a double-layer running fashion. The skin was closed with 4-0 monocryl in a subcuticular fashion. The incision was then dressed with steri-strips and a pressure dressing was applied. At the completion of the case, a Crede maneuver was performed with good uterine tone and minimal vaginal bleeding noted.? The patient tolerated the procedure well. Sponge, lap and needle counts were correct x3. The patient was taken to the recovery room in stable condition. Complications: none [place] Baby 1: Delivery Date: 02/16/24 Delivery Time: 08:34 Infant Gender: Male Presentation: vertex Placental Delivery Description: Expressed Cord Vessel Description: 3 Vessels and Nuchal Cord score (1 min): 7 score (5 min): 8 Post-operative Condition: stable Disposition: PACU Aftercare: routine postop
[2024-02-16 09:31] VITALS: BP 107/68; PULSE 58; RESP 20; O2SAT 100
[2024-02-16 09:35] VITALS: BP 99/47; PULSE 58; RESP 19; TEMP 36.6; O2SAT 100
[2024-02-16] MEDS: KETOROLAC 30 MG/ML VIAL IV ×2 (15:12→20:59)
[2024-02-16 15:32] VITALS: BP 105/64
[2024-02-16] MEDS: SERTRALINE 50 MG TABLET 100 MG PO (20:59)
[2024-02-17] MEDS: KETOROLAC 30 MG/ML VIAL IV (03:02)
[2024-02-17] MEDS: diphenhydrAMINE 50 MG/ML VIAL 25 MG IV (04:41)
[2024-02-17] MEDS: ACETAMINOPHEN 325 MG TABLET 650 MG PO ×4 (04:41→20:36)
[2024-02-17 06:18] LABS: Add Manual Diff / Slide Review NO; Basophils Absolute Auto 0 /uL (0-100); Basophils Percent Auto 0.3 % (0-2); Eosinophils Absolute Auto 0 /uL (0-450); Eosinophils Percent Auto 0.3 % (2-4); Hematocrit 29.5 % (36-46); Hemoglobin 9.7 g/dL (12.0-16.0); Lymphocytes Absolute Auto 2200 /uL (1100-4500); Lymphocytes Percent Auto 21.8 % (25-40); Mean Corpuscular HGB Conc 32.7 % (30-36); Mean Corpuscular Hemoglobin 26.3 PG (26-34); Mean Corpuscular Volume 80.4 fL (80-100); Monocytes Absolute Auto 900 /uL (0-900); Monocytes Percent Auto 8.8 % (3-14); Neutrophils Absolute Auto 7100 /uL (1500-7000); Neutrophils Percent Auto 68.8 % (50-75); Platelet Count 155 X10^3/uL (150-400); Red Blood Cell Count 3.67 X10^6/uL (4.0-5.2); Red Cell Distribution Width 17.6 % (11.6-14.8); White Blood Cell Count 10.3 X10^3/uL (4.5-11.0)
[2024-02-17] MEDS: PRENATAL VIT,CALC/IRON/FOLIC 1 TABLET 1 TAB PO (08:45)
[2024-02-17] MEDS: IBUPROFEN 600 MG TABLET PO ×3 (08:45→20:35)
[2024-02-17] MEDS: FERROUS SULFATE 325 MG TABLET PO (08:46)
[2024-02-17] MEDS: DOCUSATE 100 MG CAPSULE PO (08:46)
[2024-02-17] MEDS: OXYCODONE IR 5 MG TABLET PO ×2 (09:33→15:15)
--- NOTE | 2024-02-17 10:49 | PM.OBPN.1 ---
Subjective - OB Subjective Patient comments: pain well controlled, incisional pain and tolerating diet baby status: doing well [place] feeding status: breast and bottle feeding Date Patient Seen: 02/17/24 Time Patient Seen: 10:49 Interval history: 38yo [id number] POD#1 s/p RLTCS. She reports her pain is tolerable, had more pain with getting up to the restroom. Has voided once since her cortez was removed. Tolerated regular diet, is breast and bottle feeding without issues. Exam Vital Signs (past 8 hours): Oxygen Delivery Method Room Air vitals reviewed in OBIX, within normal parameters Const General: comfortable and No acute distress Resp Effort & Inspection: normal respiratory effort and able to speak in complete sentences Other: fundus firm and nontender at U-2 Skin Other: Pfannenstiel incision clean/dry/intact with steri-strips in place Extrem General: normal to inspection and no calf tenderness Psych Mood: congruent mood Affect: normal affect Objective Labs 02/17/24 06:00 Labs: Laboratory Results - last 24 hr 02/17/24 06:00 WBC 10.3 RBC 3.67 L Hgb 9.7 L Hct 29.5 L MCV 80.4 MCH 26.3 MCHC 32.7 RDW 17.6 H Plt Count 155 Neut % (Auto) 68.8 Lymph % (Auto) 21.8 L [place] % (Auto) 8.8 Eos % (Auto) 0.3 L Baso % (Auto) 0.3 Neut # (Auto) 7100 H Lymph # (Auto) 2200 [place] # (Auto) 900 Eos # (Auto) 0 Baso # (Auto) 0 Assessment & Plan Assessment and Plan (1) delivery with vacuum assistance, delivered, current hospitalization: Status: Acute (2) Acute postoperative anemia due to expected blood loss: Status: Acute (3) Group B Streptococcus carrier state affecting : Status: Acute (4) Advanced maternal age (AMA) in : Status: Acute (5) Obesity affecting , antepartum: Status: Acute (6) Uterine scar from previous delivery affecting : Status: Acute (7) Anemia affecting : Status: Acute (8) 39 weeks gestation of : Status: Acute Plan day: 1 plan OB: routine postop care Comments: 38yo [id number] POD#1 s/p RLTCS, doing well in the period. -encouraged ambulation today -continue routine care -anticipate d/c home tomorrow Time-Based Coding :: [30min] spent with patient and on the chart (including review of chart, obtaining history, exam, reviewing outside data, placing orders, documenting exam and treatment plan, and counseling patient) on [02/17/24].
[2024-02-17] MEDS: SERTRALINE 50 MG TABLET 100 MG PO (20:36)
[2024-02-18] MEDS: IBUPROFEN 600 MG TABLET PO ×3 (02:45→14:43)
[2024-02-18] MEDS: ACETAMINOPHEN 325 MG TABLET 650 MG PO ×3 (02:45→14:44)
[2024-02-18] MEDS: PRENATAL VIT,CALC/IRON/FOLIC 1 TABLET 1 TAB PO (08:56)
[2024-02-18] MEDS: DOCUSATE 100 MG CAPSULE PO (08:56)
[2024-02-18] MEDS: FERROUS SULFATE 325 MG TABLET PO (08:56)
--- NOTE | 2024-02-18 09:28 | P.DS_ITS ---
Discharge Providers Provider Date of admission: 02/16/24 05:50 Discharge Date: 02/18/24 Primary care physician: KUMAR Tucker Consults: 02/16/24 10:10 Consult to Curing Machine Operator Routine Comment: Discharge provider: Ena Marino DO Summary Hospital Course Date Patient Seen: 02/18/24 Time Patient Seen: 09:28 Diagnoses: Term gestation at 39+0wks History of prior section Advanced maternal age Obesity in Anemia in Hospital Course: 38yo [id number] admitted at 39+0wks for planned repeat section. Her delivery was uncomplicated, and productive of a viable male infant. Her course was unremarkable. On post-op day #2, she was ambulating, tolerating regular diet, voiding spontaneously with minimal lochia. Her pain was well controlled with oral medications, thus she was discharged to home on post-op day #2. Peripartum Data Delivery Method: Section Procedures: External monitoring delivery Neuraxial anesthesia complications: none [place] 1: Gender: Male Disposition of : home Discharge Diagnosis (1) delivery with vacuum assistance, delivered, current hospitalization: Status: Acute (2) Acute postoperative anemia due to expected blood loss: Status: Acute (3) Group B Streptococcus carrier state affecting : Status: Acute (4) Advanced maternal age (AMA) in : Status: Acute (5) Obesity affecting , antepartum: Status: Acute (6) Uterine scar from previous delivery affecting : Status: Acute (7) Anemia affecting : Status: Acute (8) 39 weeks gestation of : Status: Acute Status at Discharge Cognitive/behavioral status at discharge: oriented Functional status at discharge: independent ambulation Overall status at discharge: patient is progressing back to baseline Time Spent with Patient Time attestation: Total time spent providing and/or coordinating discharge services: Time spent: Less than 30 minutes Objective Labs 02/17/24 06:00 Exam Vital Signs (past 8 hours): Oxygen Delivery Method Room Air vitals reviewed in OBIX, within normal parameters Const General: cooperative, healthy appearing, comfortable and No acute distress Resp Effort & Inspection: normal respiratory effort GI Inspection: normal to inspection Other: fundus firm and nontender at U-2 Skin General: no rashes or lesions noted Other: incision clean/dry/intact with steri-strips in place Neuro General: patient alert and patient awake Extrem General: normal to inspection and no calf tenderness Psych Mood: congruent mood Affect: normal affect Discharge Plan Discharge Plan Patient Disposition: Home Provider Discharge Comment: Take ibuprofen 800mg every 8hrs and acetaminophen 650mg every 6hrs for pain. Use oxycodone 5mg every 4hrs as needed for breakthrough pain. Avoid lifting greater than 20lbs for at least 6 weeks. Avoid placing anything in the vagina for 6 weeks. Discharge orders & Medications Prescriptions: New oxycodone 5 mg Tablet 5 mg PO Q4H PRN (Reason: Pain, Moderate (4-6)) Qty: 10 0RF acetaminophen 325 mg Tablet 650 mg PO Q6H Qty: 60 0RF ibuprofen 800 mg tablet 800 mg PO Q8H Qty: 60 0RF Continued prenat.vits,zara,baw-vtmy-lzgsw Tablet 1 tab PO DAILY sertraline 100 mg tablet 100 mg PO DAILY Discontinued RSVPreF3 antigen-AS01E (PF) 120 mcg/0.5 mL suspension for reconstitution 0.5 ml IM ONCE Qty: 1 0RF aspirin [Adult Aspirin Regimen] 81 mg tablet,delayed release (DR/EC) 81 mg PO DAILY No Action (DME) miscellaneous medical supply Misc See Rx Instructions .ROUTE .MEDSUPPLY Qty: 1 0RF Rx Instructions: Disabled Parking Permit Follow up/Referrals: Ena Marino DO [Physician] - (Call my office tomorrow on 02/18 for an incision check appointment next week (02/25-03/01) and a 6 week appointment.) Diet/Activity/Treatments Diet: Diet as Tolerated Activity: As tolerated. Skin/Wound/Dressing Care Report to your healthcare provider any signs of infection, such as:: chills, fever, increased pain, unusual drainage and unusual redness Dressing: The steri-strips will fall off after 1 week. You may shower normally while they are in place. Visit Report/Discharge Packet Instructions: DI for , DI for Prescription Opioid Use Stand Alone Forms: Discharge: Care, Patient Portal/API, Stroke Signs & Symptoms Discharge Data Primary Care Provider: Yuliana Mars
[2024-02-18 10:58] VITALS: BP 136/79; PULSE 69; RESP 16; TEMP 36.6
[2024-02-18] MEDS: OXYCODONE IR 5 MG TABLET PO (14:47)
== END 2024-02-18 15:00 | disposition home or self-care (01) | DRG 788 ==
PROVIDERS: Admitting Provider Student in an Organized Health Care Education/Training Program; PCP Nurse Practitioner Acute Care; Referring Provider Student in an Organized Health Care Education/Training Program; Visit Provider Student in an Organized Health Care Education/Training Program
PROC: 10D00Z1 Extraction of Products of Conception, Low, Open Approach (ICD-10-PCS; CPT 59514; principal; 2024-02-16 07:45)
DX: O34.211 Maternal care for low transverse scar from previous cesarean delivery (principal); O99.824 Streptococcus B carrier state complicating childbirth; O99.214 Obesity complicating childbirth; Z3A.39 39 weeks gestation of pregnancy; Z37.0 Single live birth
CPT/HCPCS: 36415; 59050; 59510; 59514; 85025; 86850; 86900; 86901; J0690; J1100; J1200; J1885; J2274; J2405; J2590